=== PATIENT | female | born 1970 | race Hispanic/Latino ===

== ENCOUNTER 2024-03-05 13:04 | Outpatient (CLI) | payer OTHER | END 2024-03-05 13:05 | disposition home or self-care (01) | LOC: BICRAD 13:04 | PROVIDERS: ATTEND Family Medicine | DX: I10 Essential (primary) hypertension (principal); E66.9 Obesity, unspecified; E11.9 Type 2 diabetes mellitus without complications; M25.50 Pain in unspecified joint; R26.9 Unspecified abnormalities of gait and mobility | CPT/HCPCS: 71046 ==